=== PATIENT | female | born 1945 | race Caucasian/White ===

== ENCOUNTER 2025-07-23 09:45 | Emergency (ER) | payer MEDICARE, SELFPAY ==
--- OUTSIDE RECORDS SUMMARY | 2020-05-17 06:00 | XMS_ITS | Continuity of Care Document ---
Author Organization [facility] Address [address] [place] [address] Phone Care Team Providers Care Stock Wetter Name Role Phone Lv SOL/Shannon Levine CHT Unavailable Loren vailable Procedures Procedure Date Therapeutic Activities Neuromuscular Re-Ed Therapeutic Exercise Hot or Cold Pack Therapeutic Activities Neuromuscular Re-Ed Hot or Cold Pack Therapeutic Exercise Therapeutic Activities Manual Therapy Hot or Cold Pack Therapeutic Exercise OT Evaluation Moderate Complexity Hot or Cold Pack Therapeutic Exercise CMC Comfort Cool Jaden Thumb Splint Advance Directives Directive Yes / No Effective Date File Name No Information Encounters Encounter Description Practice Location Reason(s) For Visit Diagnoses Date Provider Providers Copied on Encounter [facility] [address], [place], [place], [id number], tel:[phone] [place] No Information Lv Ortega. [address] [facility], [facility] [address], [place], [facility], [place]. tel:[phone] [facility] [address], [place], [place], [id number], tel:[phone] [place] No Information Lv Ortega. [address] [facility], [facility] [address], [place], [place], [facility], [place]. tel:[phone] [facility] [address], [place], [place], [id number], tel:[phone] [place] No Information Lv Ortega. [address] [facility], [address], [place], [place], [facility], . tel:[phone] [facility] [place], [address], [place], [place], [id number], tel:[phone] [place] No Information Lv Ortega. [address] [facility], [address], [place], [place], [facility], . tel:[phone] Family History Family Member Type Diagnosis Age At Onset No Information Payers Payer name Insurance type Covered alliance party ID Authorcassandra orr(s) Medicare [place] MB [id number] [facility] CI [id number] Social History Type Description Quantity Date Captured Comments Sex Female Smoking Status No Information Chief Complaint And Reason For Visit No Information Reason For Referral Reason For Referral No Information Plan Of Treatment Date Type Action Status Nutrition Recommendation Nutrition / feed ing management completed History Of Present Illness Encounter Date Complaint History Of Prese nt Illness No Information Functional Status Date Functional Assessmen t No Information Instructions Date Instruction Additional Infor mation No Information Assessments Type Assessment Date No Information Patient Care Teams Name Effective Dates (start - stop) Status Members No Information
--- OUTSIDE RECORDS SUMMARY | 2020-05-17 06:00 | XMS_ITS | Continuity of Care Document ---
Author Organization [facility] Address [address] [place] [address] Phone Care Team Providers Care Director Of Aviation Name Role Phone Lv SOL/Shannon Levine CHT Unavailable Loren vailable Procedures Procedure Date Therapeutic Activities Therapeutic Exercise Neuromuscular Re-Ed Hot or Cold Pack Therapeutic Activities Therapeutic Exercise Hot or Cold Pack Neuromuscular Re-Ed Therapeutic Activities Hot or Cold Pack Therapeutic Exercise Manual Therapy OT Evaluation Moderate Complexity Hot or Cold Pack CMC Comfort Cool Jaden Thumb Splint Therapeutic Exercise Advance Directives Directive Yes / No Effective Date File Name No Information Encounters Encounter Description Practice Location Reason(s) For Visit Diagnoses Date Provider Providers Copied on Encounter [facility] [address], [place], [place], [id number], tel:[phone] [place] No Information Lv Ortega. [address] [facility], [facility] [address], [place], [facility], [place]. tel:[phone] [facility] [address], [place], [place], [id number], tel:[phone] [place] No Information Lv Ortega. [address] [facility], [facility] [address], [place], [place], [facility], [place]. tel:[phone] [facility] [address], [place], [place], [id number], tel:[phone] [place] No Information Lv Ortega. [address] [facility], [address], [place], [place], [facility], . tel:[phone] [facility] [place], [address], [place], [place], [id number], tel:[phone] [place] No Information Lv Ortega. [address] [facility], [address], [place], [place], [facility], . tel:[phone] Family History Family Member Type Diagnosis Age At Onset No Information Payers Payer name Insurance type Covered green party ID Authorcassandra orr(s) Medicare [place] MB [id number] [facility] CI [id number] Social History Type Description Quantity Date [...]
--- OUTSIDE RECORDS SUMMARY | 2020-12-29 08:45 | XMS_ITS | Continuity of Care Document ---
Author Organization [facility] Address [address] [place] [address] [place] [address] Phone Care Team Providers Care Storage Consultant Name Role Phone Loy Roy MD Unavailable Unavailable Allergies, Adverse Reactions, Alerts Substance Reaction Status Criticality No Known Allergies Active No Inform ation Procedures Procedure Date Office/outpatient Visit, [facility] Advance Directives Directive Yes / No Effective Date File Name No Information Encounters Encounter Description Practice Location Reason(s) For Visit Diagnoses Date Provider Providers Copied on Encounter Office/outpa tient Visit, [facility], [address], [place], [place], [id number], [place] tel:[phone] [place] Professional Bumps (chief complaint) Meibomian gland dysfunction (MGD) of both eyesSquamous blepharitis of upper and lower eyelids of both eyesPapilloma of left upper eyelidCyst of left lower eyelidDry eye syndrome of bilateral lacrimal glands 1 Kirill Granado. [address], [facility], [place], [place], [id number], [place]. tel:[phone] Referring Provider: Loy Warren, [address] [facility], [place], [address] . tel:[phone] Family History Family Member Type Diagnosis Age At Onset Problem Family history of degenerati ve disorder of macula Payers Payer name Insurance type Covered democrat ID Authoriza tion(s) Medicare [place] MB [id number] [facility] [id number] Social History Type Description Quantity Date Captured Comments Alcohol Use Details No Caffeine Use Details Tobacco Use Status Current non-smoker 20 Smoking Status Never smoker Non-Smoking Tobacco Use Details : No Details Available : No Details Available Sex Female Chief Complaint And Reason For Visit From encounter dated '12/29/2020 13:45'. Bumps (chief complaint). Description: The 75 year old female presents for evaluation of Bumps in the LAMINE. Pt reports bumps on LLL starting yesterday morning. Pt denies pain, decreased vision, redness, discharge and light sensitivity OS. Pt reports a viral infection OD on 11/08/20 and was treated with Prednisolone. Once that cleared, an abscess grew nasally OD, which was treated with Doxycycline and Prednisolone. Pt is typically treated by Dr. Carrasco, but he is out of town. Pt reports having Blepharitis and has started warm compresses and lid scrubs yesterday. Reason For Referral Reason For Referral No Information Plan Of Treatment Date Type Action Status Patient Education Dry Eyes: Care Instruct ions completed History Of Present Illness Encounter Date Complaint History Of Prese nt Illness Bumps The 75 year old female presents for evaluation of Bumps in the LAMINE. Pt reports bumps on LLL starting yesterday morning. Pt denies pain, decreased vision, redness, discharge and light sensitivity OS. Pt reports a viral infection OD on 11/08/20 and was treated with Prednisolone. Once that cleared, an abscess grew nasally OD, which was treated with Doxycycline and Prednisolone. Pt is typically treated by Dr. Carrasco, but he is out of town. Pt reports having Blepharitis and has started warm compresses and lid scrubs yesterday. Functional Status Date Functional Assessmen t No Information Instructions Date Instruction Additional Infor mation Impression/Plan Assessments Type Assessment Date assessment Meibomian gland dysfunction (MGD ) of both eyes assessment Squamous blepharitis of upper an d lower eyelids of both eyes assessment Papilloma of left upper eyelid F assessment Cyst of left lower eyelid assessment Dry eye syndrome of bilateral la crimal glands Patient Care Teams Name Effective Dates (start - stop) Status Members No Information
--- OUTSIDE RECORDS SUMMARY | 2020-12-29 08:45 | XMS_ITS | Continuity of Care Document ---
Author Organization [facility] Address [address] [place] [address] [place] [address] Phone Care Team Providers Care Gear Inspector Name Role Phone Loy Roy MD Unavailable Unavailable Allergies, Adverse Reactions, Alerts Substance Reaction Status Criticality No Known Allergies Active No Inform ation Procedures Procedure Date Office/outpatient Visit, [facility] Advance Directives Directive Yes / No Effective Date File Name No Information Encounters Encounter Description Practice Location Reason(s) For Visit Diagnoses Date Provider Providers Copied on Encounter Office/outpa tient Visit, [facility], [address], [place], [place], [id number], [place] tel:[phone] [place] Professional Bumps (chief complaint) Meibomian gland dysfunction (MGD) of both eyesSquamous blepharitis of upper and lower eyelids of both eyesPapilloma of left upper eyelidCyst of left lower eyelidDry eye syndrome of bilateral lacrimal glands 1 Kirill Granado. [address], [facility], [place], [place], [id number], [place]. tel:[phone] Referring Provider: Loy Warren, [address] [facility], [place], [address] . tel:[phone] Family History Family Member Type Diagnosis Age At Onset Problem Family history of degenerati ve disorder of macula Payers Payer name Insurance type Covered constitution party ID Authoriza tion(s) Medicare [place] MB [id number] [facility] [id number] Social History Type Description Quantity Date Captured [...]
--- OUTSIDE RECORDS SUMMARY | 2025-07-23 09:47 | XMS_ITS | Clinical Summary ---
Author Organization [facility] Address [address] [place] [address] Care Team Providers Care Woods Overseer Name Role Phone Krystal Sahu MA Unavailable Unavailable Matthew Hung MD Primary Care Provider [phone] West Wilkes MD Unavailable [phone] Usha Jimenez FASHION STYLING INTERN Unavailable [phone] Allergies Active Allergy Reactions Criticality Noted Date Comments Nitrofurantoin Other (See comments) Low 04/25/2021 Throat red and hoarsness '' makes throat red and sore Medications polyethylene glycol (MIRALAX) 17 gram/dose powder take by oral route every day mixed with 8 oz. water, juice, soda, coffee or tea 0 0 04/22/2014 Active cholecalciferol (VITAMIN D3) 1,000 unit capsule 0 0 04/22/2014 Active multivit,iron,mi nerals/lutein (CENTRUM SILVER ULTRA WOMEN'S ORAL) Take by mouth. Active Active Problems Problem Noted Date Diagnosed Date Follicular lymphoma grade III 02/04/2024 Assessment & Plan (02/04/2024 2:34 PM CDT): Continue observation with Oncology. Acute non-recurrent pansinusitis 02/04/2024 Assessment & Plan (02/04/2024 2:34 PM CDT): Complete abx sent. Reviewed abx Ses & scheduling. Aware to complete full course. To continue mucinex/sinus otc medications. Discussed nasal saline rinses/neti pots. Push fluids. Reviewed red flags; what would warrant rtc. BMI 26.0-26.9,adult 02/04/2024 Assessment & Plan (02/04/2024 2:34 PM CDT): Weight is stable. Laryngopharyngeal reflux (LPR) 04/20/2021 Assessment & Plan (04/20/2021 12:29 PM CDT): Start Pepcid 20 mg at bedtime LPR discussed and Handout provided Cellulitis of right upper extremity 04/26/2020 Assessment & Plan (04/26/2020 2:12 PM CDT): She has responded well to the antibiotic. Will extend antibiotic for additional 2 days per patient request. Medicare annual wellness visit, subsequent 09/03 Assessment & Plan (09/06/2019 9:23 AM CDT): Patient Counseling: --Nutrition: Stressed importance of moderation in sodium/caffeine intake, saturated fat and cholesterol, caloric balance, sufficient intake of fresh fruits, vegetables, --Exercise: Stressed the importance of regular exercise. --Injury prevention: Discussed safety belts, throw rugs in house, smoke detectors, --Dental health: Discussed importance of regular tooth brushing, flossing, and dental visits. --Immunizations reviewed and offered --Discussed benefits of screening colonoscopy. --females- mammograms offered if applicable/ needed. Assessment & Plan (09/03/2018 12:55 PM CDT): -Recommended: Healthy diet. Avoiding junk food/fast food. -30 minutes of exercise most days of the week. -Mammogram every 1 year -Influenza vaccine every year - given today -F/u in 1 year for Annual PE or sooner if needed Acute right-sided thoracic back pain 09/03/2018 Assessment & Plan (09/03/2018 1:00 PM CDT): Offered to obtain x-ray and pt did not want to do. It looks like she actually had an x-ray of her thoracic spine 01/2018. She also complains of weight loss and weakness and is worried about her history of lymphoma. She stated she wants another scan and to see her oncologist. I told her I can put in another referral to Dr. contreras and she states that she would like to wait a few weeks to see if the back pain gets better as she has been lifting some things at home. Skin mole 08/14/2018 Assessment & Plan (09/06/2019 6:52 PM CDT): Reassurance given. She can wait until she sees dermatology in November for further evaluation Assessment & Plan (08/14/2018 10:12 AM CDT): Pt. Reports that she accidentally pinched off a mole on her neck. She normally goes to her geothermal hvac technician to get them removed. She did not like the way it looked so tried to remove it herself by pinching it. No problems before hand-no change in size, color or bleeding. Will give Bactroban ointment Keflex TID Monitor for signs of infection-increased redness, swelling, drainage, fever, chills. White coat syndrome with hypertension 08/14/2017 Assessment & Plan (04/26/2019 10:27 AM CDT): Discussed blood pressure readings with patient. Blood pressure is elevated at 160/70 today. I told her at this reading that I would start a low dose blood pressure medication with her. Patient states that she had started blood pressure medication in the past and it dried her out so much that she could not urinate until noon. She thinks that it was a water pill. Patient refused to start any other blood pressure medication. Patient will continue to monitor blood pressure at home. Assessment & Plan (08/14/2018 10:02 AM CDT): Hypertension is worsening. Dietary sodium restriction. Blood pressure will be reassessed at the next regular appointment.Lifestyle changes can help you control and prevent high blood pressure, even if you're taking blood pressure medication. Here's what you can do: Eat healthy foods. Eat a healthy diet. Try the Dietary Approaches to Stop Hypertension (DASH) diet, which emphasizes fruits, vegetables, whole grains, poultry, fish and low-fat dairy foods. Get plenty of potassium, which can help prevent and control high blood pressure. Eat less saturated fat and trans fat. Decrease the salt in your diet. A lower sodium level -- 1,500 milligrams (mg) a day -- is appropriate for people 51 years of age or older, and individuals of any age who are black or who have hypertension, diabetes or chronic kidney disease. Maintain a healthy weight. Keeping a healthy weight, or losing weight if you're overweight or obese, can help you control your high blood pressure and lower your risk of related health problems. If you're overweight, losing even 5 pounds (2.3 kilograms) can lower your blood pressure. Increase physical activity. Regular physical activity can help lower your blood pressure, manage stress, reduce your risk of several health problems and keep your weight under control. Limit alcohol. Even if you're healthy, alcohol can raise your blood pressure. If you choose to drink alcohol, do so in moderation. For healthy adults, that means up to one drink a day for women of all ages and men older than age 65, and up to two drinks a day for men age 65 and younger. One drink equals 12 ounces of beer, 5 ounces of wine or 1.5 ounces of 80-proof liquor. Don't smoke. Tobacco injures blood vessel pickens and speeds up the process of hardening of the arteries. If you smoke, ask your doctor to help you quit. Manage stress. Reduce stress as much as possible. Practice healthy coping techniques, such as muscle relaxation, deep breathing or meditation. Getting regular physical activity and plenty of sleep can help, too. Notify the office for blood pressure greater than 130/80 Assessment & Plan (08/14/2017 11:06 AM CDT): Hypertension is unchanged. Regular aerobic exercise. Blood pressure will be reassessed at the next regular appointment. 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 Lipid panel ordered; will call w/results when rec'd. Reviewed diet/exercise recommendations. Assessment & Plan (04/26/2019 10:14 AM CDT): Lipid abnormalities are unchanged. Lipid-lowering therapy was not prescribed due to patient refusal. Lipids will be reassessed order for repeat labs per pt request. Resolved Problems Problem Noted Date Diagnosed Date Resolved Date Viral upper respiratory tract infection 02/07/2020 04/02/2021 Assessment & Plan (02/07/2020 2:41 PM CDT): Symptoms >4 weeks. Will treat with augmentin. Recommended mucinex otc for symptoms. Call in 5-7 days if no improvement. BMI 25.0-25.9,adult 08/14/2018 04/02/20 Assessment & Plan (09/03/2018 12:56 PM CDT): BMI Follow-up includes: nutrition counseling. Assessment & Plan (08/14/2018 10:02 AM CDT): BMI wnl Diet= low-carb Limit white bread, rice, pasta, potatoes, juice, energy drinks, coffee creamers with sugar, sugar sodas, candy, cake, cookies, ice cream. Be more careful with starchy vegetables like corn, carrots, and fruits. Stay away from processed foods, fast foods, fried foods. The cornerstone of this diet is lean grilled meats, green salads or cooked greens, fat-free milk, cottage cheese, nuts like [id number], protein bars with 10-15 g of protein and 20-30 g of carbohydrate. Choose whole grain breads and pastas, brown rice, sweet potatoes, read onions--these whole grains absorb more slowly thus blood sugar does not surge so high so quickly. Avoid drinking juice, eat a piece of fruit instead. Dermatitis 05/11/2018 09/06/2019 Assessment & Plan (05/11/2018 4:24 PM CDT): Dermatitis, unknown origin. Almost looks like razor rash, but pt states she hasn't shaved since early April. Is not consistent with any kind of insect bites. Will try topical steroid cream to area bid for 5-7 days. If no improvement, then I recommended she follow up with her geothermal hvac technician, who she is already established with Essential hypertension 04/22/201408/14 Overview (02/14/2017): Essential hypertension Immunizations Immunization Administration Dates Next Due Influenza, Quadrivalent, Spl it, Intramuscular 08/22/2016,08/16/2015 Influenza, Quadrivalent, Spl it, Preservative Free, Intramuscular 10/08/2022,09/13/2021,08/23/2020,09/06,09/03/2018,08/14/2017 Influenza, Trivalent, IM (MDV) 08/16/2014 Influenza, Trivalent, Preser vative Free, Intramuscular 08/04/2024 Influenza, Unspecified 02/04/2024(Deferr ed: Patient Refused),07/11/2023(Deferred: Patient Refused),09/02/2022,08/14/2017(Deferre d: Patient Refused) Pneumococcal Conjugate PCV 13 04/25/2016 Pneumococcal Polysaccharide PPV23 08/16/2014 Td, adsorbed 04/26/2019 Surgical History Surgery Date Site/Laterality Comments TONSILLECTOMY 11/10/1954 - 11/09/1955 APPENDECTOMY 11/10/1984 - 11/09/1985 DILATION AND CURETTAGE OF UTERUS 3-4 miscarriages COLONOSCOPY Medical History Medical History Date Comments Non-Hodgkin's lymphoma (HCC) 2006 Hypertension History of multiple miscarriages Hyperlipidemia History of chemotherapy 2007 non-hodg kins lymphoma Family History Medical History Relation Name Comments Lung cancer Father COD at age 75 COPD Mother Colon cancer Mother Coronary artery disease Mother Heart disease Mother Heart failure Mother COD at age 92 Relation Name Status Comments Father (Age 75) Mother (Age 92) Sister 1 (Age 57) from sepsis following surgery Sister 2 (Age 62) from sepsis following surgery Social History Tobacco Use Types Packs/Day Years Used Date Smoking Tobacco: Never Smokeless Tobacco: Never Tobacco Cessation:Counseling Given: Not Answered Alcohol Use Standard Drinks/Week Comments No 0 (1 standard drink = 0.6 oz pur e alcohol) PHQ-2 Answer Date Recorded PHQ-2 Total Score (If total score is 3 or more points, staff should administer the PHQ-9) 0 02/04/2024 Personal Safety Answer Date Recorded Have you ever been in or are you currently in a harmful physical or emotional relationship or is someone making you feel afraid or unsafe? Denies 10/06/2023 Comments No Sex and Gender Information Value Date Recorded Sex Assigned at Not on file Legal Sex Female 3:44 PM GRIEVANCE AND APPEALS COORDINATOR Gender Identity Not on file Sexual Orientation Not on file Occupation Industry Job Start Date Job End Date retired Not on file Not on file Not on file Obstetrics History Para Term AB IAB SAB Ectopic Multiple Livin g Live Births 5 1 1 0 4 0 4 0 0 1 1 Date Outcome GA Total Labor Labor/2nd/3rd Weight Sex Type Anes PTL Vibha A1 A5 Name Clin Term SAB SAB SAB SAB Last Filed Vital Signs Vital Sign Reading Time Taken Comments Blood Pressure 153/68 04/12/2025 9:06 AM CDT Pulse 63 04/12/2025 9:06 AM CDT Temperature 36.3 C (97.3 F) 04/12/2025 9:06 AM CDT Respiratory Rate 20 04/12/2025 9:06 AM CDT Oxygen Saturation 99% 04/12/2025 9:06 AM CDT Inhaled Oxygen Concentration - - Weight 68.7 kg (151 lb 6.4 oz) 04/12/2025 9:06 A M CDT Height 167.6 cm (5' 6) 04/12/2025 9:06 AM CDT Body Mass Index 24.44 04/12/2025 9:06 AM CDT Plan of Treatment Health Maintenance Due Date Last Done Comments Osteoporosis Screening-Bone Density Scan 1944 Hepatitis B Screening 1962 Zoster Vaccine (1 of 2) 1963 DTaP/Tdap/Td Vaccine (1 - Tdap) 04/27/2019 9 Well Visit 65+ 09/06/2020 09/06/2019, 09/03/2018 Depression Screening 02/03/2025 02/04/2024, 04/02/2021, 04/26/2020, Additional history exists Fall Risk Assessment 02/03/2025 02/04/2024, 04/02/2021, 04/26/2020, Additional history exists Influenza Vaccine (#1) 2025 4, 10/08/2022, 09/02/2022, Additional history exists Pneumococcal vaccine 65+ Completed 04/25/2016, 05/2014 Colon Cancer Screening-CT Colonography Discontinued 08/12/2017 Colon Cancer Screening-Colonoscopy Discontinued 08/12/2017 Colon Cancer Screening-DNA Stool Discontinued 08/12/20 Colon Cancer Screening-FIT Discontinued 08/12/2017 Colon Cancer Screening-FOBT Discontinued 08/12/2017 Colon Cancer Screening-Sigmoidoscopy Discontinued 08/12/2017 Colorectal Cancer Screening Discontinued Procedures Procedure Name Priority Date/Time Associated Diagnosis Comments COLONOSCOPY Routine 08/12/2017 from Last 3 Months or Most Recently Relevant to Health Maintenance Results * COLONOSCOPY (08/12/2017) Colonoscopy Abnormal Historical Provider HEALTH MAINTENANCE Final Result from Last 3 Months or Most Recently Relevant to Health Maintenance Insurance MEDICARE [facility] MCR SUPPLEMENT LAWANDA HUI [id number] COMMERCIAL GENERIC MEDICARE MEDICARE [facility] MEDICARE [facility] Address: [facility] [address] [place] [address] [facility] [place] [address] [facility] Care Teams Woods Overseer Relationship Specialty Start Date End Date [place] [address] PCP - General Family Medicine 09/29/20 Krystal Sahu MA ACO Care Hod Carrier 07/27/19 West Wilkes MD [address] [place] [address] Consulting Physician Hematology and Oncology 09/15/23 Usha Jimenez NP [address] [place] [address] Nurse Practitioner Medical Oncology 09/15/23
--- OUTSIDE RECORDS SUMMARY | 2025-07-23 09:47 | XMS_ITS | Encounter Summary ---
Author Organization [facility] Address [address] [place] [address] Care Team Providers Care Star Route Mail Driver Name Role Phone Krystal Sahu ABHI Unavailable Unavailable Hero Delgado MD Unavailable [phone] Matthew Hung MD Primary Care Provider [phone] West Wilkes MD Unavailable [phone] Usha Jimenez NP Unavailable [phone] Reason for Visit * Reason Onset Date Comments Scheduling Appointments 09/27/2021 confirmi ng mammogram appt Encounter Details Date Type Department Care Team (Late st Contact Info) Description 09/27/2021 Telephone [facility] [address] [place] [id number] [address] Chapp[address] RT Scheduling Appointments (confirming mammogram appt) Social History Tobacco Use Types Packs/Day Years Used Date Smoking Tobacco: Never Smokeless Tobacco: Never Alcohol Use Standard Drinks/Week Comments No 0 (1 standard drink = 0.6 oz pur e alcohol) PHQ-2 Answer Date Recorded PHQ-2 Total Score (If total score is 3 or more points, staff should administer the PHQ-9) 0 04/02/2021 Comments No Sex and Gender Information Value Date Recorded Sex Assigned at Not on file Legal Sex Female 3:44 PM MEDICAL DEVICE ENGINEER Gender Identity Not on file Sexual Orientation Not on file Occupation Industry Job Start Date Job End Date retired Not on file Not on file Not on file documented as of this encounter Plan of Treatment Not on file documented as of this encounter Visit Diagnoses Not on filedocumented in this encounter Care Teams Star Route Mail Driver Relationship Specialty Start Date End Date Matthew Hung MD [address] [place] [address] PCP - General Family Medicine 09/29/20 Krystal Sahu MA ACO Care Emergency Communications Dispatcher 07/27/19 Hero Delgado MD Medical Oncologist/Veterinarian Poultry Medical Oncology 06/30/20 09/14/23 West Wilkes MD [address] [place] [address] Consulting Physician Hematology and Oncology 09/15/23 Usha Jimenez, BANDAR [address] [place] [address] Nurse Practitioner Medical Oncology 09/15/23 documented as of this encounter
--- OUTSIDE RECORDS SUMMARY | 2025-07-23 09:47 | XMS_ITS | Encounter Summary ---
Author Organization [facility] Address [address] [place] [address] Care Team Providers Care J2Ee Programmer Name Role Phone Unavailable Primary Care Provider Unavailabl e Encounter Details Date Type Department Care Team (Late st Contact Info) Description 09/17/2023 Lab Requisition [facility] - DermPath Lab [address] [facility] [place] [id number] Aric Kumar Jr., MD [address] [place] [address] Social History Tobacco Use Types Packs/Day Years Used Date Smoking Tobacco: Never Assessed Comments Unknown Sex and Gender Information Value Date Recorded Sex Assigned at Not on file Legal Sex Female 1:53 PM CDT Gender Identity Not on file Sexual Orientation Not on file documented as of this encounter Plan of Treatment Not on file documented as of this encounter Procedures Procedure Name Priority Date/Time Associated Diagnosis Comments DERMATOPATHOLOGY Routine 09/17/2023 12:0 0 AM ADOLESCENT COORDINATOR documented in this encounter Results * DERMATOPATHOLOGY (09/17/2023 12:00 AM ADOLESCENT COORDINATOR) Case Report Dermatopathology Report Case: [id number] Authorizing Provider: Aric Kumar Jr., MD Collected: 09/17/2023 12:00 AM Ordering Location: [facility] DermPath Lab Received: 09/17/2023 01:04 PM Pathologist: Adwoa Otto MD Specimen: Skin, left lateral forehead 3 2:18 PM ADOLESCENT COORDINATOR DERMATOPATHOLOGY LABORATORY Final Diagnosis Specimen A. SKIN, left lateral forehead: SEBORRHEIC KERATOSIS, MACULAR, INFLAMED (L82.1) 3 2:18 PM ADOLESCENT COORDINATOR DERMATOPATHOLOGY LABORATORY at 1418 ADOLESCENT COORDINATOR Clinical History Inflamed Seborrheic Keratosis vs. Squamous Cell Carcinoma vs Araujo's Disease 3 2:18 PM [facility] DERMATOPATHOLOGY LABORATORY Gross Description Specimen A: Received is one formalin filled container labeled with the patient's name and designated left lateral forehead. The specimen consists of a shave biopsy measuring 9x7x1 mm. Jar 0. 3 2:18 PM [facility] DERMATOPATHOLOGY LABORATORY Microscopic Description Specimen A. SKIN, left lateral forehead: Sections show a relatively broad, flat proliferation of small keratinocytes. The surface is gently papillated, and there is increased basilar pigmentation. There is a patchy lymphocytic infiltrate within the papillary dermis. 3 2:18 PM [facility] DERMATOPATHOLOGY LABORATORY Disclaimer An external and internal positive and negative controls are appropriate for the histochemical, immunohistochemical and immunofluorescence stain(s) in this case (if any), except where stated explicitly. The performance characteristics of the stain(s) cited in this report were developed and its performance characteristic determined by the Dermatopathology Laboratory at [facility], directed by Dr. Xiomara Hutton. These tests need not be, and therefore are not, approved by the [place] Food and Drug Administration. The tests are used for clinical purposes. Billing Codes Specimen Charges Stain Charges 29984 1 3 2:18 PM [facility] DERMATOPATHOLOGY LABORATORY Embedded Images 3 2:18 PM [facility] DERMATOPATHOLOGY LABORATORY Pathology/Cytolog y TISSUE SPECIMEN FROM SKIN / Unknown 09/17/2023 09/17/2023 1:04 PM ADOLESCENT COORDINATOR Aric Kumar Jr., MD LAB - PATHOLOGY/CYTOLOG Y ORDERABLES Final Result DERMATOPATHOLOGY LABORATORY [facility] - Department of Dermatology [address], [address] [phone] documented in this encounter Visit Diagnoses Not on filedocumented in this encounter
--- OUTSIDE RECORDS SUMMARY | 2025-07-23 09:47 | XMS_ITS | Encounter Summary ---
Author Organization [facility] Address [address] [place] [address] Care Team Providers Care Subsorter Name Role Phone Unavailable Primary Care Provider Unavailabl e Encounter Details Date Type Department Care Team (Late st Contact Info) Description 04/11/2023 Lab Requisition [facility] - DermPath Lab [address] [place] [phone] Aric Kumar Jr., MD [address] [facility] [address] [place] [address] Social History Tobacco Use Types Packs/Day Years [...] Priority Date/Time Associated Diagnosis Comments DERMATOPATHOLOGY Routine 04/10/2023 12:0 0 AM CDT documented in this encounter Results * DERMATOPATHOLOGY (04/10/2023 12:00 AM CDT) Case Report Dermatopathology Report Case: [id number] Authorizing Provider: Aric Kumar Jr., MD Collected: 04/10/2023 12:00 AM Ordering Location: [facility] DermPath Lab Received: 04/11/2023 03:18 PM Pathologist: Surekha Otto MD Specimen: Skin, right inferior forehead 3 4:10 PM CDT DERMATOPATHOLOGY LABORATORY Final Diagnosis Specimen A. SKIN, right inferior forehead: BENIGN VERRUCOUS KERATOSIS, INFLAMED; SUPERFICIAL PORTIONS OF (L82.1) (see microscopic description) 3 4:10 PM CDT DERMATOPATHOLOGY LABORATORY at 1610 CDT Clinical History Inflamed Seborrheic Keratosis vs. Squamous Cell Carcinoma vs. Verruca Vulgaris 3 4:10 PM CDT DERMATOPATHOLOGY LABORATORY Gross Description Specimen A: Received is one formalin filled container labeled with the patient's name and designated right inferior forehead. The specimen consists of a shave biopsy measuring 4b2q6po. Jar 0. 3 4:10 PM CDT DERMATOPATHOLOGY LABORATORY Microscopic Description Specimen A. SKIN, right inferior forehead: Sections show superficial portions of hyperkeratosis, papillomatosis, hypergranulosis, and acanthosis. Inflammatory cells are present within the dermis. These histological findings can be seen in a verruca vulgaris or a seborrheic keratosis. Additional deeper sections were obtained and reviewed. 3 4:10 PM CDT DERMATOPATHOLOGY LABORATORY Disclaimer An external and internal positive and negative controls are appropriate for the histochemical, immunohistochemical and immunofluorescence stain(s) in this case (if any), except where stated explicitly. The performance characteristics of the stain(s) cited in this report were developed and its performance characteristic determined by the Dermatopathology Laboratory at [facility], directed by Dr. Xiomara Hutton. These tests need not be, and therefore are not, approved by the [place] Food and Drug Administration. The tests are used for clinical purposes. Billing Codes Specimen Charges Stain Charges 22928 1 3 4:10 PM CDT DERMATOPATHOLOGY LABORATORY Embedded Images 3 4:10 PM CDT DERMATOPATHOLOGY LABORATORY Pathology/Cytolog y TISSUE SPECIMEN FROM SKIN / Unknown 04/10/2023 04/11/2023 3:18 PM CDT us Aric Kumar Jr., MD LAB - PATHOLOGY/CYTOLOG Y ORDERABLES Final Result DERMATOPATHOLOGY LABORATORY [facility] - Department of Dermatology [address] [phone] documented in this encounter Visit Diagnoses Not on filedocumented in this encounter
--- OUTSIDE RECORDS SUMMARY | 2025-07-23 09:47 | XMS_ITS | Clinical Summary ---
Author Organization [facility] Address [address] [place] [address] Care Team Providers Care Certified Mortician Name Role Phone Unavailable Primary Care Provider Unavailabl e Source Comments [facility],non-owned Affiliates and Associated Physician Practices is amultiple site organization consisting of ambulatory clinics and hospital sitesin [place], [place], [place] and [place]. This disclosure is being madepursuant to the Care Everywhere program and may not contain all information available regarding this patient. Last updated 18.[facility] Social History Tobacco Use Types Packs/Day Years Used Date Smoking Tobacco: Never Assessed Comments Unknown Sex and Gender Information Value Date Recorded Sex Assigned at Not on file Legal Sex Female 1:53 PM CDT Gender Identity Not on file Sexual Orientation Not on file Plan of Treatment Health Maintenance Due Date Last Done Comments BONE DENSITY TESTING 1945 MEDICARE AWV 12 MONTHS 1945 DTAP/TDAP/TD VACCINES (1 - Tdap) 1963 PNEUMOCOCCAL VACCINE 50+ (1 of 1 - PCV) 1994 ZOSTER VACCINE (1 of 2) 1994 Respiratory Syncytial Virus (RSV) Vaccine Pt: or over 60 yrs (1 - 1-dose 75+ series) 2019 DEPRESSION SCREENING 11/10/2024 COVID-19 VACCINE ( - 2023-2 5 season) 2025 INFLUENZA VACCINE (#1) 2025 HEPATITIS B VACCINE Aged Out No longe r eligible based on patient's age to complete this topic HIB VACCINE Aged Out No longer eligi ble based on patient's age to complete this topic HPV VACCINE Aged Out No longer eligi ble based on patient's age to complete this topic MENINGOCOCCAL (Group B) VACC INE SHARED DECISION-MAKING Aged Out No longer eligibl e based on patient's age to complete this topic MENINGOCOCCAL GROUPS A/C/Y/W VACCINE Aged Out No longer eligible b ased on patient's age to complete this topic Insurance MEDICARE [facility] Address: [address] [place] [address] MEDICARE [facility] LAWANDA HUI [id number]
--- OUTSIDE RECORDS SUMMARY | 2025-07-23 09:47 | XMS_ITS | Encounter Summary ---
Author Organization [facility] Address [address] [place] [address] Care Team Providers Care Energy Conservation Director Name Role Phone Unavailable Primary Care Provider Unavailabl e Encounter Details Date Type Department Care Team (Late st Contact Info) Description 07/25/2020 Lab Requisition [facility] DermPath Lab [address] [place] [id number] [place] [address] [place] [address] Social History Tobacco Use Types Packs/Day Years [...] Priority Date/Time Associated Diagnosis Comments DERMATOPATHOLOGY Routine 07/24/2020 12:0 0 AM CDT documented in this encounter Results * DERMATOPATHOLOGY (07/24/2020 12:00 AM CDT) Case Report Dermatopathology Report Case: [id number] Authorizing Provider: Nneka Bates MD Collected: 07/24/2020 12:00 AM Ordering Location: [facility] DermPath Lab Received: 07/25/2020 02:16 PM Pathologist: Mohini Blair MD Specimen: Skin, right medial breast 5-6:00 region 0 11:30 AM CDT DERMATOPATHOLOGY LABORATORY Final Diagnosis Specimen A. SKIN, right medial breast 5-6:00 region: SEBORRHEIC KERATOSIS, IRRITATED AND INFLAMED (L82.0) 0 11:30 AM CDT DERMATOPATHOLOGY LABORATORY at 1130 CDT Clinical History Inflamed seborrheic keratosis. 0 11:30 AM CDT DERMATOPATHOLOGY LABORATORY Gross Description Specimen A: Received is one formalin filled container labeled with the patient's name and designated right medial breast 5-6:00 region. The specimen consists of a shave biopsy measuring [id number]. Jar 0. 0 11:30 AM CDT DERMATOPATHOLOGY LABORATORY Microscopic Description Specimen A. SKIN, right medial breast 5-6:00 region: Sections show acanthosis, papillomatosis, hyperkeratosis, and squamous eddies. There is a lymphohistiocytic infiltrate within the papillary dermis. 0 11:30 AM CDT DERMATOPATHOLOGY LABORATORY Disclaimer An external and internal positive and negative controls are appropriate for the histochemical, immunohistochemical and immunofluorescence stain(s) in this case (if any), except where stated explicitly. The performance characteristics of the stain(s) cited in this report were developed and its performance characteristic determined by the Dermatopathology Laboratory at [facility], directed by Dr. Xiomara Hutton. These tests need not be, and therefore are not, approved by the [place] Food and Drug Administration. The tests are used for clinical purposes. Billing Codes Specimen Charges Stain Charges 56516 1 0 11:30 AM CDT DERMATOPATHOLOGY LABORATORY Embedded Images 0 11:30 AM CDT DERMATOPATHOLOGY LABORATORY Pathology/Cytolog y TISSUE SPECIMEN FROM SKIN / Unknown 07/24/2020 07/25/2020 2:16 PM CDT us Nneka Bates MD LAB - PATHOLOGY/CYTOLOGY ORDERABLES Final Result DERMATOPATHOLOGY LABORATORY [facility] - Department of Dermatology [address] [place] [address], [facility] [phone] documented in this encounter Visit Diagnoses Not on filedocumented in this encounter
--- OUTSIDE RECORDS SUMMARY | 2025-07-23 09:47 | XMS_ITS | Encounter Summary ---
Author Organization [facility] Address [address] [place] [address] Phone Care Team Providers Care Director Machine Name Role Phone Matthew Hung MD Primary Care Provider [phone] Calvin Bass MD Unavailable Mary Luo APRN, SET UP / OPERATOR Unavailable Encounter Details Date Type Department Care Team (Late st Contact Info) Description 04/20/2025 Transcribe [facility] 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 Not on file Not on file Not on lissett e documented as of this encounter Plan of Treatment Upcoming Encounters Date Type Department Care Team (Late st Contact Info) Description 09/30/2025 9:30 AM STRIP PRESSER [facility] [address] [place] [address] Peterson Pearce MD [address] [place] [address] Discharge Disposition: Discharged to home or Selfcare documented as of this encounter Visit Diagnoses Not on filedocumented in this encounter Care Teams Director Machine Relationship Specialty Start Date End Date Matthew Hung MD [address] [place] [address] PCP - General Internal Medicine 08/01/21 Calvin Bass MD [facility] [address] [address] Consulting Physician Colon and Rectal Surgery 02/28/23 Mary Luo APRN, SET UP / OPERATOR [facility] [facility] [place] [address] Nurse Practitioner Advanced Practice Nurse 03/19/24 documented as of this encounter
--- OUTSIDE RECORDS SUMMARY | 2025-07-23 09:47 | XMS_ITS | Encounter Summary ---
Author Organization [facility] Address [address] [place] [address] Phone Care Team Providers Care Silverware Buffing Machine Operator Name Role Phone Raúl Reina MD Primary Care Provider [phone] Taylor Villanueva MONTESSORI TODDLER TEACHER Primary Care Provider [phone] Krystal Sahu MA Unavailable Unavailable Lonnie Rosenberg MD, [facility] Unavailable + [phone] Anjali Jackson NP Primary Care Provider [phone] Hero Delgado MD Unavailable Matthew Hung MD Primary Care Provider [phone] [place] MD Unavailable [phone] Usha Jimenez MONTESSORI TODDLER TEACHER Unavailable [phone] Encounter Details Date Type Department Care Team (Late st Contact Info) Description 01/08/2018 Orders Only [facility] ProviderSaida MD [address] [place] [address] Social History Tobacco Use Types Packs/Day Years Used Date Smoking Tobacco: Never Smokeless Tobacco: Never Alcohol Use Standard Drinks/Week Comments No 0 (1 standard drink = 0.6 oz pur e alcohol) Comments Unknown Sex and Gender Information Value Date Recorded Sex Assigned at Not on file Legal Sex Female 3:44 PM CHIP BIN OPERATOR Gender Identity Not on file Sexual Orientation Not on file documented as of this encounter Plan of Treatment Not on file documented as of this encounter Procedures Procedure Name Priority Date/Time Associated Diagnosis Comments DISCHARGE LABORATORY CUMULATIVE REPORT 01/08/2018 12:00 AM CHIP BIN OPERATOR documented in this encounter Results * DISCHARGE LABORATORY CUMULATIVE REPORT (01/08/2018 12:00 AM CHIP BIN OPERATOR) Narrative 01/08/2018 12:00 AM CHIP BIN OPERATOR Ordered by an unspecified provider. us Historical Provider LAB BLOOD ORDERABLES Keren l Result documented in this encounter Visit Diagnoses Not on filedocumented in this encounter Care Teams Silverware Buffing Machine Operator Relationship Specialty Start Date End Date Raúl Reina MD PCP - General 05/06/17 01/08/18 Taylor Villanueva NP PCP - General Family Medicine 01/09/18 04/18/20 Anjali Jackson NP [address] [place] [address] PCP - General 04/19/20 09/28/20 Matthew Hung MD [address] [place] [address] PCP - General Family Medicine 09/29/20 Krystal Sahu MA ACO Care Head Baggage Porter 07/27/19 Jericho Fleming Jr., MD Medical Oncologist/Clinical Material Handler Medical Oncology 04/07/20 06/29/20 Hero Delgado MD [address] [place] [address] Medical Oncologist/Clinical Material Handler Medical Oncology 06/30/20 09/14/23 [place] Wilkes MD [address] [place] [address] Consulting Physician Hematology and Oncology 09/15/23 Usha Jimenez, B[place]AR [address] [place] [address] Nurse Practitioner Medical Oncology 09/15/23 documented as of this encounter
[2025-07-23 09:59] VITALS: BP 184/79; PULSE 68; RESP 16; TEMP 36.6; O2SAT 99
--- NOTE | 2025-07-23 10:34 | ED_ITS ---
HPI - Skin/Abscess/Foreign Bdy General Chief complaint: Skin/Abscess/Foreign Body Stated complaint: rash Time Seen by Provider: 07/23/25 10:25 Source: patient and RN notes reviewed Mode of arrival: ambulatory Limitations: no limitations History of Present Illness HPI narrative: Patient presents today with a rash to the posterior neck x4 days. Denies pain, itching, or any additional symptoms. She has tried some rubbing alcohol and hydrocortisone and states this has helped dry the lesions out. Reports she moved into a new apartment 3 weeks ago and was concerned she may have bedbugs. She is not continuing to have new lesions daily. Related Data Home Medications ?Medication ?Instructions ?Recorded ?Confirmed ?Last Taken ?Type No Home Medications 07/23/25 07/23/25 U nknown History Allergies Allergy/AdvReac Type Severity Reaction Status Date / Time No Known Allergies Allergy Verified 07/23/25 10:04 [facility] Comments At time of signature, I have reviewed and agree with nursing past medical, surgical, social and family history unless otherwise noted. Please see nursing chart for further information. There is no relevant family history pertinent to the presenting complaint Exam Narrative: GENERAL: Well-appearing, well-nourished, and in no acute distress. HEAD: Normocephalic, atraumatic. EYES: EOMI. No redness or drainage. Conjunctivae normal. ENT: Mucous membranes pink and moist. NECK: Normal AROM. CHEST: No respiratory distress. EXTREMITIES: Normal range of motion. No edema. SKIN: Warm, dry. Capillary refill normal. Normal skin turgor. Cluster of slightly erythematous vesicles to the left lower neck extending to the left occiput. Nontender. No edema, crusting, drainage. NEURO: No focal deficits. Alert and oriented x3. Gait steady. PSYCH: Normal affect. No signs of depression or anxiety. Course Course Level of Care: Express Care Visit Vital Signs Vital signs: Vital Signs Temperature 97.9 F 07/23/25 09:59 Pulse Rate 68 07/23/25 09:59 Respiratory Rate 16 07/23/25 09:59 Blood Pressure 184/79 H 07/23/25 09:59 Pulse Oximetry 99 07/23/25 09:59 Oxygen Delivery Room Air 07/23/25 09:59 Temperature 97.9 F 07/23/25 09:59 Pulse Rate 68 07/23/25 09:59 Respiratory Rate 16 07/23/25 09:59 Blood Pressure 184/79 H 07/23/25 09:59 Pulse Oximetry 99 07/23/25 09:59 Oxygen Delivery Room Air 07/23/25 09:59 Reviewed MDM - Skin/Abscess/Foreign Bdy MDM Narrative Medical decision making narrative: 79-year-old female patient presents with a rash to the left neck and occiput x4 days without pain or itching. She has tried rubbing alcohol and hydrocortisone which has helped dry the area. She is concerned she may have bedbugs after moving into a new apartment approximately 3 weeks ago. Upon exam, patient clusters of mildly erythematous vesicles to the left neck extending upward that are nontender to palpation. Rash consistent with shingles. No signs of bacterial infection present. Recommend following up with PCP if symptoms do not improve. Patient agrees with plan. Anticipatory guidance given. Blood pressure elevated. Patient states she has been told in the past that she should take medication, but does not. Differential Diagnosis Differential diagnosis: Likely viral exanthem, dermatophytosis, herpes zoster, cellulitis, eczema, insect bites, impetigo and contact dermatitis Critical Care Time Critical Care Time Critical Care Time: No Discharge Plan Discharge Clinical Impression: Herpes zoster Qualifiers: Herpes zoster complications: without complications Qualified Code(s): B02.9 - Zoster without complications Patient Disposition: Home Condition: Stable Instructions: Shingles (ED) Additional Instructions: Your rash appears to be shingles. They do not appear to be insect bites. The lesions should resolve on their own. Follow up with your PCP with any additional concerns. Your blood pressure was elevated above 120/80 today at Urgent Care. This puts you above the threshold for follow up. Please schedule a followup visit with your personal physician as soon as possible, for further evaluation and treatment. Even blood pressure exceeding 120/80 may indicate pre-hypertension. Patient Language: Icelandic Prescriptions: No Action No Home Medications Follow-up/Referrals: Anabell,Matthew Israel M.D. [Primary Care Provider] Time of Disposition: 10:38
== END 2025-07-23 10:42 | disposition home or self-care (01) ==
PROVIDERS: Emergency Provider Nurse Practitioner; PCP Family Medicine
DX: B02.9 Zoster without complications (principal); I10 Essential (primary) hypertension; Z91.148 Patient's other noncompliance with medication regimen for other reason; Z85.72 Personal history of non-Hodgkin lymphomas
CPT/HCPCS: 99202; G0463

== ENCOUNTER 2025-08-18 08:11 | Emergency (ER) | payer MEDICARE, SELFPAY ==
--- NOTE | 2025-08-18 08:13 | ED_ITS ---
HPI - General Adult General Chief complaint: Urogenital-Female Stated complaint: back pain Time Seen by Provider: 08/18/25 08:34 Source: patient, RN notes reviewed and old records reviewed Mode of arrival: ambulatory Limitations: no limitations History of Present Illness HPI narrative: 80-year-old female presents to the [facility] with complaints of a back pain. Patient is walking with a normal gait. Pain started Friday, 3 days ago. Has taken aspirin Denies any injury. Walks with a normal gait. No midline tenderness. Pain is slightly worse with movement, increases throughout the day. No erythema, ecchymosis or rashes noted Patient denies any frequency urgency or burning with urination. States that she ?just wants to make sure. Patient is also requesting her flu shot, indicated that we do not offer them. Onset (ago): day(s) (3) Treatments prior to arrival: other (Aspirin) Related Data Allergies Allergy/AdvReac Type Severity Reaction Status Date / Time nitrofurantoin (From AdvReac Mild Other Verified 08/18/25 08:28 Macrobid) Review of Systems 2 Review of Systems: All systems reviewed & are unremarkable except as noted in HPI and below Constitutional: Constitutional: Reports no additional constitutional complaints Cardiovascular: Cardiovascular: Reports no additional cardiovascular complaints, Denies chest pain and Denies dyspnea Respiratory: Respiratory: Reports no additional respiratory complaints, Denies chest congestion, Denies cough and Denies dyspnea Musculoskeletal: Musculoskeletal: Reports as per HPI and Reports back pain (Left lower) Integumentary/Breasts: Skin/Breast: Reports system reviewed and no additional complaints, except as docu Neurologic: Reports system reviewed and no additional complaints, except as documented PMFSH Comments At the time of my signature, I reviewed and agree with the nursing past medical, surgical, social, and family history. There is no relevant family history pertinent to the patient complaint. Exam 2 Const: General: cooperative, no acute distress, well developed, alert and well nourished Nutritional Appearance: well nourished O rientation/consciousness: patient oriented x3 Limitations: no limitations HENMT: Head: normal to inspection Mouth: Yes Normal oral and palatal mucosa present, Yes lip normal, Yes tongue normal and Yes moist mucous membranes Eyes: General: appearance normal, both eyes and all related structures A lignment and Position: alignment normal Neck: Neck: normal visual inspection, full ROM, no lymphadenopathy and no meningeal signs Chest: Chest palpation & inspection: normal inspection of the chest Resp: Effort & Inspection: normal respiratory effort and able to speak in complete sentences Auscultation: clear to auscultation bilaterally, no crackles, no rales, no rhonchi and no wheezes Cardio: Rate: regular rate GI: GI Palp: No abdominal tenderness Back/Spine/Pelvis: Back/spine/pelvis image: 1. Patient reports pain, unable to reproduce pain with palpation. Patient states that she has a slight ache currently. No midline tenderness. No erythema, ecchymosis, rashes noted. Denies any injury. No midline tenderness. No loss retention of bowel or bladder. Skin: General skin exam: normal color and no rashes or lesions noted Neuro: General: patient oriented x3, gait normal, moves all extremities and no meningeal signs Cognition (Neuro): normal cognition Speech: normal speech Gait exam (Neuro): Normal gait present Extrem: General: normal to inspection, full ROM, capillary refill normal and normal gait Psych: Appearance: grossly normal and well kempt Mental Status: mental status grossly normal Speech and movement: Normal speech and movement present and Clear speech present Affect: normal affect Attitude: cooperative Course Course Level of Care: Express Care Visit Vital Signs Vital signs: Vital Signs Temperature 98.0 F 08/18/25 08:14 Pulse Rate 60 08/18/25 08:14 Respiratory Rate 20 08/18/25 08:14 Blood Pressure 144/68 H 08/18/25 08:14 Pulse Oximetry 100 08/18/25 08:14 Oxygen Delivery Room Air 08/18/25 08:14 Temperature 98.0 F 08/18/25 08:14 Pulse Rate 60 08/18/25 08:14 Respiratory Rate 20 08/18/25 08:14 Blood Pressure 144/68 H 08/18/25 08:14 Pulse Oximetry 100 08/18/25 08:14 Oxygen Delivery Room Air 08/18/25 08:14 Reviewed Medical Decision Making MDM Narrative Medical decision making narrative: Patient sitting comfortably in exam room. Patient is nontoxic, vitals are stable. Patient presents 3 day history of back pain. Also requesting flu shot. Urine shows no signs of UTI however due to age will culture. Patient with no red flag symptoms, left lower back pain. Will prescribe a mild muscle relaxer, encouraged to use [id number] products as well as topicals. Patient appropriate for outpatient treatment with close follow-up Discharge instructions reviewed with patient, as well as provided in writing per nursing staff. The instructions also include specific and strict return/GO TO THE ER as well as f/u information. All questions have been answered, and the patient deny any further questions with discharge and discharge plan. Some parts of this dictation were generated by voice recognition software and may contain typographical and/or grammatical inaccuracies. Differential Diagnosis Differential Diagnosis: UTI, back pain versus acute muscle strain, sprain. Medical Records Medical records reviewed: Yes I reviewed the external patient's medical records. Vital Signs Vital Signs: Vital Signs Temperature 98.0 F 08/18/25 08:14 Pulse Rate 60 08/18/25 08:14 Respiratory Rate 20 08/18/25 08:14 Blood Pressure 144/68 H 08/18/25 08:14 Pulse Oximetry 100 08/18/25 08:14 Oxygen Delivery Room Air 08/18/25 08:14 Temperature 98.0 F 08/18/25 08:14 Pulse Rate 60 08/18/25 08:14 Respiratory Rate 20 08/18/25 08:14 Blood Pressure 144/68 H 08/18/25 08:14 Pulse Oximetry 100 08/18/25 08:14 Oxygen Delivery Room Air 08/18/25 08:14 Reviewed Lab Data Lab results reviewed: Yes I reviewed the patient's lab results. Labs: Reviewed Critical Care Time Critical Care Time Critical Care Time: No Discharge Plan Discharge Clinical Impression: Lumbar back pain Patient Disposition: Home Condition: Stable Instructions: Acute Low Back Pain (ED) Additional Instructions: Take Tylenol to help with pain. Take Baclofen (muscle relaxer) as directed. Do not drink, drive, operate machinery, or do anything dangerous while taking this medication Exercise:Combine aerobic exercise, like walking or swimming, with specific exercises to keep the muscles in your back and abdomen strong and flexible. Proper Lifting:Be sure to lift heavy items with your legs, not your back. Do not bend over to pick something up. Keep your back straight and bend at your knees. Weight:Maintain a healthy weight. Being overweight puts added stress on your lower back. Avoid Smoking:Both the smoke and the nicotine cause your spine to age faster than normal. Proper Posture:Good posture is important for avoiding future problems. A therapist can teach you how to safely stand, sit, and lift. Use warm moist heat to help with pain. Using topical such as Biofreeze, Bob-Anguiano or Aspercreme can also help Follow up with Primary provider in 2-3 days, This may become a chronic condition and they will be the one to help manage your pain and order additional testing. Go to the nearest ER if you develop problems with bladder/bowel function, weakness or loss of feeling in one or both of your legs. Patient Language: Danish Prescriptions: New baclofen 10 mg tablet See Rx Instructions .Route .COMPLEX PRN (Reason: muscle pain) Qty: 5 0RF Rx Instructions: 0.5 tab 1-2 times per day for muscle pain Follow-up/Referrals: Anabell,Matthew Israel M.D. [Primary Care Provider] - 3 Days Clinical Impression: Lumbar back pain Time of Disposition: 08:42
[2025-08-18 08:14] VITALS: BP 144/68; PULSE 60; RESP 20; TEMP 36.7; O2SAT 100
[2025-08-18 08:48] LABS: EDUAAPPEAR Clear; EDUABILI Negative (Negative); EDUABLOOD Negative (Negative); EDUACOLOR1 Yellow; EDUAGLUCOSE Negative (Negative); EDUAKETONE Negative (Negative); EDUALEUKO Negative (Negative); EDUANITRATE Negative (Negative); EDUAPH 6.5; EDUAPROTEIN Negative (Negative); EDUASPGRAVITY 1.015; EDUAUROBILI 0.2
== END 2025-08-18 08:45 | disposition home or self-care (01) ==
PROVIDERS: Emergency Provider Nurse Practitioner; PCP Family Medicine
DX: M54.50 Low back pain, unspecified (principal); I10 Essential (primary) hypertension; Z91.128 Patient's intentional underdosing of medication regimen for other reason; Z85.72 Personal history of non-Hodgkin lymphomas
CPT/HCPCS: 81003; 87086; 99213; G0463